=== PATIENT | male | born 1960 | race Caucasian/White ===

== ENCOUNTER → 2017-01-10 | Day surgery (SDC) | payer BC ==
[~2017-01-10] VITALS: Ht 177.8 cm; Wt 82.0 kg
[~2017-01-10] MED LIST: ACETAMINOPHEN 325 MG TAB PO PRN; ASPI81TA28 PO; ATOR-24 PO; ATROPINE SULFATE 0.1 MG/ML 5ML SYR IV PRN; CHOL2000 PO; CYM/30 PO; DIAZEPAM 5MG TAB ONE; METO25TA3 PO; NITROGLYCERIN 0.4 MG SL PER TAB CHARGE SL PRN; NTRSLP4 SL; OMEG10007 PO; SODIUM CHLORIDE 0.9% 1000ML 1,000 ML IV SCH; SODIUM CHLORIDE 0.9% 1000ML 250 ML IV PRN
[2017-01-10 07:02] VITALS: BP 132/77; PULSE 47; TEMP 36.6; O2SAT 98; Ht 177.8 cm; Wt 82.0 kg
--- NOTE | 2017-01-10 09:34 | History & Physical Bridge Note ---
H&P Re-Evaluation Bridge Note: I have examined the patient, reviewed the History & Physical and in the interval since the performance of the History & Physical I have noted the following changes of clinical significance: No changes noted
--- NOTE | 2017-01-10 10:06 | [facility] Post Operative Brief Note ---
Preliminary Procedure Note Procedure Date Jan 10, 2017. Pre-Procedure Diagnosis Angina AUC Score 8 Post-Procedure Diagnosis Severe CAD Procedure(s) Performed Coronary Angiography, Left Heart Cath, LV Angiography Manager Of [employer] Dr. Tommy Dobbs Arranger Assembler(s) Steph Costa Estimated Blood Loss <15cc Medication(s) Lidocaine 1% (local infiltration), Diphenhydramine (25 mg po), Diazepam (5mg po) Preliminary Findings Severe three vessel coronary artery disease LM 10% at origin LAD Type 3 with 90, 99% proximal 1/3 with DARIUS 2 flow distal vessel to apex Ramus small with diffuse proximal disease LCX 100% after large OM with very faint distal fill OM diffuse proximal disease with 75, 70 % lesion surrounding a small area of ectasia RCA 100% mid vessel with fill via bridge collaterals LV apical hypokinesis EF 50% Mild MR Recommendations CABG Specimens None Fluids (cc crystalloids) 219 Anesthesia Anxiolytic PO only Procedural Complication(s) None Disposition [employer]el Engine [employer] Holding/Recovery
--- NOTE | 2017-01-10 10:12 | Discharge Instructions ---
Discharge Instructions Procedure Procedure Date: Jan 10, 2017. Reason for Visit: Previous InfarctRinku To Do. Discharge Discharge Date: Jan 10, 2017. Discharge Diagnosis: Three vessel coronary artery disease Last Recorded Wt (Kilograms): 82 Anesthesia Post Anesthesia Instructions: If you have had General Anesthesia or IV Sedation: * Do not drive today. * Resume driving when surgeon permits. * Do not make important decisions or sign legal documents today. * Call surgeon for: 1. Temperature elevations greater than 101 degrees F. 2. Uncontrollable pain. 3. Excessive bleeding. 4. Persistent nausea and vomiting. 5. Medication intolerance (nausea, vomiting or rash). * For nausea and vomiting use only clear liquids such as: tea, soda, bouillon until nausea subsides, then gradually increase diet as tolerated. * If you have any concerns or questions, call your surgeon's office. If physician is unavailable and it is an emergency, call 911 or go to the nearest emergency room. Instructions Activity Recommendations: limitations as noted below Recommended Home Diet: resume previous diet, low cholesterol Allergies: Coded Allergies: No Known Allergies (Unverified , 01/10/17) Provider Instructions ACTIVITY RECOMMENDATIONS: It is common to feel weak and fatigue for a few days. * Do not drive or operate any motorized equipment for the next three days. * Limit stair usage (2 or 3 trips a day only) for the next three days. * Do not lift anything heavier than 10 pounds for the next three days. * Do not engage in vigorous exercise or any sports * You may shower the day after your procedure, but do not immerse the area for three days. Cleanse the site gently with soap and water. SPECIAL CARE INSTRUCTIONS: * You may replace the pressure dressing or band-aid the morning after the procedure. * After your procedure, it is normal to have a small bruise or small lump at the site. Examine your site daily for any change in the bruise or lump, redness, swelling, drainage or numbness. Notify your doctor if any change. BLEEDING: * If there is a small amount of bleeding at the site, lie down and apply firm pressure with a clean cloth for ten minutes. When the bleeding stops, lie quietly keeping the procedure limb straight for six hours. Notify your doctor as soon as possible. * If the bleeding does not stop after ten minutes or if there is a large amount of bleeding or spurting, call 911 immediately. Continue to lie down and hold firm pressure until help arrives. SKIN IRRITATION: * You may experience some redness and/or swelling in the area where radiation was administered. If any skin irritation occurs, please contact your family physician. FOLLOW UP VISIT: Keep any scheduled doctor appointments. Follow Up Additional Instructions: ACTIVITY RECOMMENDATIONS: It is common to feel weak and fatigue for a few days. * Do not drive or operate any motorized equipment for the next three days. * Limit stair usage (2 or 3 trips a day only) for the next three days. * Do not lift anything heavier than 10 pounds for the next three days. * Do not engage in vigorous exercise or any sports for the next five days. * You may shower the day after your procedure, but do not immerse the area for three days. Cleanse the site gently with soap and water. SPECIAL CARE INSTRUCTIONS: * You may replace the pressure dressing or band-aid the morning after the procedure. * After your procedure, it is normal to have a small bruise or small lump at the site. Examine your site daily for any change in the bruise or lump, redness, swelling, drainage or numbness. Notify your doctor if any change. BLEEDING: * If there is a small amount of bleeding at the site, lie down and apply firm pressure with a clean cloth for ten minutes. When the bleeding stops, lie quietly keeping the procedure limb straight for six hours. Notify your doctor as soon as possible. * If the bleeding does not stop after ten minutes or if there is a large amount of bleeding or spurting, call 911 immediately. Continue to lie down and hold firm pressure until help arrives. SKIN IRRITATION: * You may experience some redness and/or swelling in the area where radiation was administered. If any skin irritation occurs, please contact your family physician. FOLLOW UP VISIT: Keep any scheduled doctor appointments. Follow-up with: Dr Langston 10:30 [facility] [address] Recommendations: Call your doctor if: * Temperature above 101 degrees * Pain not relieved by pain medicine ordered * There is increased drainage or redness from any incision * You have any unanswered questions or concerns. Your Doctors Instructions noted above were prepared by provider Tommy Dobbs. Patient Signature Section: Patient Instructions Signature Page Toan Busch Patient (or Guardian) Signature/Date: I have read and understand the instructions given to me by my caregivers. Caregiver/RN/Doctor Signature/Date: The above-named patient and/or guardian has received patient instructions on this date. + Original Patient Signature Page (only) stays with chart. Please make copy for patient.
--- NOTE | 2017-01-10 12:28 | CARDIAC CATH REPORT ---
REFERRING: Dr. Masoud Prince. PRIMARY CARE PHYSICIAN: Dr. Ghada Rand, [facility]. INDICATIONS: Abnormal wall motion on echocardiogram symptoms consistent with class 3 angina pectoris with atypical features. BRIEF CARDIAC HISTORY: The patient is a 56-year-old male without prior history of cardiac disease with cardiac risk factors of hyperlipidemia, presented recently with symptoms of intermittent exertion-related chest and abdominal pain, initially attributed to indigestion. Symptoms became on further description more consistent with class 3 angina pectoris. No signs or symptoms of heart failure. Echocardiogram done and assessment of the above findings demonstrated wall motion abnormality in the LAD distribution. He is referred for diagnostic cardiac catheterization. PROCEDURE: Left heart catheterization, coronary and LV angiography. ACCESS: Right femoral artery. CATHETERS: A 5-Irish sheath, 5-Irish JL4, 5-Irish 3DRC, 5-Irish straight pigtail. CONTRAST: Nonionic x113 mL Visipaque. IV FLUIDS: 219 mL normal saline. RADIATION EXPOSURE: 2 minutes fluoroscopy time for 1198 milligrays, DAP score of 7556. SEDATION: The patient received 5 mg p.o. Valium and 25 mg Benadryl as an anxiolytic prior to procedure. No additional sedation was administered. MEDICATIONS: The patient received local infiltration of access with 1% lidocaine. COMPLICATIONS: None. RESULTS: CORONARY ANGIOGRAPHY: LEFT MAIN: Left main is of normal length and trifurcates to give rise to left anterior descending, a small ramus intermedius in the left circumflex, there an ostial narrowing of the left main of 10-20% and mild calcification. LEFT ANTERIOR DESCENDING: Left anterior descending is type 3 in distribution and gives rise to a small diffusely diseased diagonal branch shortly after its origin, a large septal branch and after tortuous period has a high grade lesion. The mid and distal left anterior descending fills up to the 99% high grade lesion demonstrating a second diagonal branch and a moderate caliber vessel reaching beyond the apex. Within the left anterior descending, as described, there is calcification and diffuse disease in its proximal segment with 90% followed by a 99% narrowing with DARIUS grade 2 flow beyond the greatest stenosis. The distal vessel is seen well and is of moderate caliber. RAMUS INTERMEDIUS: The ramus intermedius is small with diffuse disease in its proximal portion. LEFT CIRCUMFLEX: Left circumflex appears to be nondominant in distribution and consists of a very large multi-branching obtuse marginal and then as noted the left circumflex is noted to be occluded. Only faint filling of the distal vessel seen via left collateral flow, within the left circumflex, there is a 40% narrowing at its origin by 75% narrowing prior and a 70% narrowing after an area of focal ectasia. The AV groove portion of the circumflex has a 100% occlusion as described the distal left circumflex branch is large in caliber and distribution. RIGHT CORONARY ARTERY: The right coronary is dominant in distribution. Modest in caliber, gives rise to a conus in sinoatrial branch shortly after its origin and has a 100% mid vessel occlusion with bridge collateral flow demonstrating the posterior descending artery and a single posterior ventricular branch. LEFT VENTRICULAR ANGIOGRAPHY: The left ventricle was incompletely opacified. There is hypokinesis of the apex with generally preserved ejection fraction, EF 50%. There is mild mitral insufficiency. HEMODYNAMICS: Initial aortic root pressure was 96/54 with a mean of 72. LV pressure following coronary angiography was 91/7 with a mean of LVEDP of 13. Following LV angiography on pullback to the aortic root, there was no transaortic valve gradient. Closing aortic root pressure was 100/52 with a mean of 74. FINAL IMPRESSIONS: 1. Severe 3-vessel disease. 2. Hypokinesis of the anterior apex, ejection fraction 50%. RECOMMENDATIONS: The patient will be referred for surgical revascularization evaluation in the setting of high grade disease. Appointment arranged for later same week. [facility]
[2017-01-10 13:30] VITALS: BP 125/70; PULSE 56; O2SAT 98
== END | disposition home or self-care (01) ==
LOC: C.CATH 06:44
PROVIDERS: ATTEND Internal Medicine Cardiovascular Disease
DX: I25.82 Chronic total occlusion of coronary artery (principal); I25.10 Atherosclerotic heart disease of native coronary artery without angina pectoris; E78.5 Hyperlipidemia, unspecified; R53.82 Chronic fatigue, unspecified; Z79.82 Long term (current) use of aspirin